=== PATIENT | female | born 1955 | race African-American/Black ===

== ENCOUNTER 2023-05-05 08:55 | Inpatient (IN) | payer MEDICARE, MEDICAID ==
[~2023-05-05] VITALS: Ht 167.6 cm; Wt 43.1 kg
[2023-05-05 09:26] LABS: HEMATOCRIT. 29.7 % (36.0-48.0); HEMOGLOBIN. 9.6 g/dL (12.0-16.0); MEAN CORPUSCULAR HEMOGLOBIN 30.3 pg (28.0-32.0); MEAN CORPUSCULAR HGB CONC 32.2 g/dL (31.0-37.0); MEAN CORPUSCULAR VOLUME 93.9 fL (81.0-99.0); MEAN PLATELET VOLUME 7.5 fl (7.4-10.4); PLATELET 191 x1000/uL (130-400); RED BLOOD CELL COUNT 3.16 mill/uL (4.2-5.4)
[2023-05-05 09:39] LABS: DIFFERENTIAL COMMENT 1; WHITE BLOOD COUNT 1.3 x1000/uL (4.5-11.0)
[2023-05-05 09:40] LABS: ALANINE AMINOTRANSFERASE 12 IU/L (10-49); ALBUMIN 4.3 g/dL (3.2-4.8); ASPARTATE AMINOTRANSFERASE 19 IU/L (<34); BILIRUBIN TOTAL 0.3 mg/dL (0.1-1.0); CALCIUM 9.2 mg/dL (8.7-10.4); CARBON DIOXIDE 26 mEq/L (21-32); CHLORIDE 102 mEq/L (98-107); CREATININE 0.5 mg/dL (0.6-1.0); GLUCOSE 89 mg/dL (70-105); POTASSIUM 3.8 mEq/L (3.5-5.1); PROTEIN TOTAL 7.8 g/dL (6.0-8.3); SODIUM 135 mEq/L (136-145); TROPONIN I HIGH SENSITIVITY 7 ng/L (3.0-34); UREA NITROGEN BLOOD 8 mg/dL (9-23)
[2023-05-05] MEDS: MORPHINE SULFATE 4 MG/ML CPJ (NOT FOR IM USE) IV NR (10:01)
[2023-05-05 10:46] LABS: ANISOCYTOSIS 1+; PLATELET ESTIMATE NORMAL
[2023-05-05] MEDS: AZITHROMYCIN 500MG/250ML 250 ML IV NR (11:02)
[2023-05-05] MEDS: CEFTRIAXONE 1GM PREMIX 50 ML IV NR (11:02)
[2023-05-05] MEDS ORDERED: CLONIDINE 0.1MG TABLET PO PRN (12:15)
[2023-05-05] MEDS ORDERED: ONDANSETRON HCL 4MG/2ML INJ IV PRN (12:15)
[2023-05-05] MEDS ORDERED: IPRATROPIUM/ALBUTEROL 0.5-3(2.5)MG/3ML NEB HHN PRN (12:30)
[2023-05-05] MEDS: PANTOPRAZOLE SODIUM 40 MG/VIAL IV SCH (12:44)
[2023-05-05] MEDS: IOHEXOL-350 100 ML BOTTLE ONE (13:09)
[2023-05-05 15:19] LABS: CREATINE KINASE 34 IU/L (34-145); TROPONIN I HIGH SENSITIVITY 9 ng/L (3.0-34)
[2023-05-05 15:22] LABS: CREATINE KINASE MB FRACTION < 0.0 ng/mL (0.5-3.6)
[2023-05-05 16:00] VITALS: BP_SYST 134; BP_DIAS 82; BP_DIAS 83; PULSE 84; RESP 18; TEMP 97.7
[2023-05-05] MEDS ORDERED: FAMO20TA8 PO (16:28)
[2023-05-05] MEDS ORDERED: TOPUD PO (16:28)
[2023-05-05] MEDS ORDERED: OXYC-662 MT (16:28)
[2023-05-05] MEDS ORDERED: CARV25TA47 MT (16:28)
[2023-05-05] MEDS ORDERED: ATOR40TA70 MT (16:28)
[2023-05-05] MEDS ORDERED: METO-293 PO (16:28)
[2023-05-05] MEDS ORDERED: SPIR25TA6 MT (16:28)
[2023-05-05] MEDS: MORPHINE SULFATE 2 MG/ML CPJ (NOT FOR IM USE) IV PRN (17:31)
[2023-05-05 18:09] LABS: INR 1.1; PROTHROMBIN TIME 11.6 sec (9.6-11.0)
[2023-05-05 19:42] LABS: CLARITY URINE CLEAR (CLEAR); COLOR URINE YELLOW (YELLOW); GLUCOSE URINE NEGATIVE (NEGATIVE); KETONES URINE TRACE (NEGATIVE); LEUKOCYTE ESTERASE URINE NEGATIVE (NEGATIVE); NITRITE URINE NEGATIVE (NEGATIVE); OCCULT BLOOD URINE NEGATIVE (NEGATIVE); PROTEIN URINE TRACE (NEGATIVE); SPECIFIC GRAVITY URINE 1.079 (1.005-1.030); UROBILINOGEN URINE 0.2 E.U./dL (0.2-1.0)
[2023-05-05 19:50] LABS: *AMPHETAMINES SCREEN URINE NEGATIVE (NEGATIVE); *BARBITURATES SCREEN URINE NEGATIVE (NEGATIVE); *BENZODIAZEPINES SCREEN URINE NEGATIVE (NEGATIVE); *COCAINE SCREEN URINE NEGATIVE (NEGATIVE); CANNABINOID URINE SCREEN PRESUMPTIVE POSITIVE (NEGATIVE); ECSTASY MDMA SCREEN URINE NEGATIVE (NEGATIVE); METHADONE URINE SCREEN Neg (NEGATIVE); OPIATES URINE SCREEN PRESUMPTIVE POSITIVE (NEGATIVE); PHENCYCLIDINE URINE SCREEN NEGATIVE (NEGATIVE)
[2023-05-05 20:00] VITALS: BP 149/72; PULSE 73; RESP 18; TEMP 97.9
[2023-05-05] MEDS: CEFEPIME 2,000 MG in DEXT 5% WATER 100 ML IV SCH (20:00)
[2023-05-05 20:02] VITALS: BP 149/72; PULSE 96; RESP 18; TEMP 97.9
[2023-05-05] MEDS ORDERED: CARVEDILOL 12.5MG TABLET PO SCH (21:00)
[2023-05-05 21:10] LABS: BACTERIA URINE NONE SEEN; RBC URINE 0-2 /hpf (0-2); SQUAMOUS EPITHELIAL CELL URINE RARE /lpf (RARE/1+); WBC URINE NONE SEEN /hpf (0-2)
[2023-05-05] MEDS: CARVEDILOL 12.5MG TABLET PO SCH (21:51)
[2023-05-05] MEDS: ATORVASTATIN CALCIUM 40MG TABLET PO SCH (21:52)
[2023-05-06] VITALS: BP 115/74; PULSE 76; RESP 18; TEMP 96.7
[2023-05-06 04:00] VITALS: BP 131/79; PULSE 79; RESP 16; TEMP 96
[2023-05-06 08:00] VITALS: BP 113/81; PULSE 85; RESP 20; TEMP 97.7
[2023-05-06] MEDS: ASPIRIN 81MG EC TABLET PO SCH (08:45)
[2023-05-06] MEDS: AZITHROMYCIN 250 MG in DEXT 5% WATER 250 ML IV SCH (11:23)
[2023-05-06 12:00] VITALS: BP 133/73; PULSE 89; RESP 20; TEMP 97.9
[2023-05-06] MEDS: DOCUSATE SODIUM 100MG CAPSULE PO NR (14:45)
[2023-05-06 15:56] LABS: HEMATOCRIT. 30.5 % (36.0-48.0); HEMOGLOBIN. 9.9 g/dL (12.0-16.0); MEAN CORPUSCULAR HEMOGLOBIN 30.4 pg (28.0-32.0); MEAN CORPUSCULAR HGB CONC 32.5 g/dL (31.0-37.0); MEAN CORPUSCULAR VOLUME 93.5 fL (81.0-99.0); MEAN PLATELET VOLUME 7.4 fl (7.4-10.4); PLATELET 192 x1000/uL (130-400); RED BLOOD CELL COUNT 3.27 mill/uL (4.2-5.4); RED CELL DISTRIBUTION WIDTH 17.6 % (11.6-14.6)
[2023-05-06 16:00] VITALS: BP 108/70; PULSE 83; RESP 20; TEMP 98
[2023-05-06 16:02] LABS: WHITE BLOOD COUNT 1.8 x1000/uL (4.5-11.0)
[2023-05-06 16:03] LABS: DIFFERENTIAL COMMENT 1
[2023-05-06 16:07] LABS: ALANINE AMINOTRANSFERASE 9 IU/L (10-49); ALBUMIN 3.8 g/dL (3.2-4.8); ASPARTATE AMINOTRANSFERASE 23 IU/L (<34); BILIRUBIN TOTAL 0.3 mg/dL (0.1-1.0); CALCIUM 9.1 mg/dL (8.7-10.4); CARBON DIOXIDE 26 mEq/L (21-32); CHLORIDE 101 mEq/L (98-107); CREATININE 0.5 mg/dL (0.6-1.0); GLUCOSE 98 mg/dL (70-105); POTASSIUM 4.2 mEq/L (3.5-5.1); PROTEIN TOTAL 6.8 g/dL (6.0-8.3); SODIUM 134 mEq/L (136-145)
[2023-05-06 16:18] LABS: UREA NITROGEN BLOOD < 5 mg/dL (9-23)
[2023-05-06 16:53] LABS: ANISOCYTOSIS 1+; PLATELET ESTIMATE NORMAL
[2023-05-06] MEDS ORDERED: NON FORMULARY PATIENT HOME MED XX SCH (18:00)
[2023-05-06] MEDS ORDERED: NALOXONE HCL 0.4MG/ML VIAL IV PRN (18:15)
[2023-05-06 20:00] VITALS: BP 149/72; PULSE 96; RESP 19; TEMP 97.9
[2023-05-06] MEDS: MELATONIN 3MG TABLET PO SCH (20:00)
[2023-05-06] MEDS: FILGRASTIM-TBO 300 MCG/0.5 ML SYRINGE SQ SCH (21:24)
[2023-05-07] VITALS: BP 122/76; PULSE 81; RESP 20; TEMP 97.6
[2023-05-07 04:00] VITALS: BP 122/73; PULSE 81; RESP 20; TEMP 97.4
[2023-05-07 07:10] LABS: HEMATOCRIT. 29.2 % (36.0-48.0); HEMOGLOBIN. 9.6 g/dL (12.0-16.0); MEAN CORPUSCULAR HEMOGLOBIN 31.2 pg (28.0-32.0); MEAN CORPUSCULAR HGB CONC 32.9 g/dL (31.0-37.0); MEAN PLATELET VOLUME 7.9 fl (7.4-10.4); PLATELET 200 x1000/uL (130-400); RED BLOOD CELL COUNT 3.08 mill/uL (4.2-5.4); RED CELL DISTRIBUTION WIDTH 18.3 % (11.6-14.6); WHITE BLOOD COUNT 3.2 x1000/uL (4.5-11.0)
[2023-05-07 07:31] LABS: DIFFERENTIAL COMMENT 1
[2023-05-07 07:34] LABS: CALCIUM 8.6 mg/dL (8.7-10.4); CARBON DIOXIDE 23 mEq/L (21-32); CHLORIDE 104 mEq/L (98-107); CREATININE 0.5 mg/dL (0.6-1.0); GLUCOSE 96 mg/dL (70-105); POTASSIUM 4.1 mEq/L (3.5-5.1); SODIUM 132 mEq/L (136-145); UREA NITROGEN BLOOD 6 mg/dL (9-23)
[2023-05-07 08:00] VITALS: BP 132/80; PULSE 88; RESP 18; TEMP 97.5
[2023-05-07 12:00] VITALS: BP 92/58; PULSE 100; RESP 18; TEMP 98.8
[2023-05-07] MEDS ORDERED: DOCUSATE SODIUM 100MG CAPSULE PO PRN (14:45)
[2023-05-07 15:41] LABS: ANISOCYTOSIS 1+; PLATELET ESTIMATE NORMAL
[2023-05-07 16:00] VITALS: BP 130/85; PULSE 95; RESP 18; TEMP 97.9
[2023-05-07] MEDS: LACTULOSE 20G/30ML UDC PO SCH ×2 (16:38→17:15)
[2023-05-07 20:00] VITALS: BP 112/66; PULSE 70; RESP 17; TEMP 97.8
[2023-05-08] VITALS (7 sets, daily range): BP systolic 100–131; BP diastolic 55–64; PULSE 74–91; RESP 17–18; TEMP 97.5–98.4
[2023-05-08] MEDS ORDERED: LACTULOSE 20G/30ML UDC PO PRN (08:00)
[2023-05-08] MEDS ORDERED: NA PHOS,M-B/NA PHOS,DI-BA ENEMA 118ML PR PRN (14:45)
[2023-05-08 17:20] LABS: BASOPHILS % 0.3 % (0.0-2.0); EOSINOPHILS % 0.2 % (0.0-5.0); HEMATOCRIT. 29.8 % (36.0-48.0); HEMOGLOBIN. 9.6 g/dL (12.0-16.0); LYMPHOCYTES % 19.2 % (20.0-50.0); MEAN CORPUSCULAR HEMOGLOBIN 30.2 pg (28.0-32.0); MEAN CORPUSCULAR HGB CONC 32.2 g/dL (31.0-37.0); MEAN PLATELET VOLUME 8.3 fl (7.4-10.4); MONOCYTES % 10.4 % (2.0-8.0); NEUTROPHILS % 69.9 % (40.0-76.0); PLATELET 223 x1000/uL (130-400); RED BLOOD CELL COUNT 3.17 mill/uL (4.2-5.4); WHITE BLOOD COUNT 9.7 x1000/uL (4.5-11.0)
[2023-05-08 17:37] LABS: CALCIUM 9.1 mg/dL (8.7-10.4); CARBON DIOXIDE 26 mEq/L (21-32); CHLORIDE 101 mEq/L (98-107); CREATININE 0.6 mg/dL (0.6-1.0); GLUCOSE 96 mg/dL (70-105); SODIUM 134 mEq/L (136-145); UREA NITROGEN BLOOD 7 mg/dL (9-23)
[2023-05-09] VITALS: BP 129/69; PULSE 92; RESP 19; TEMP 97.2
[2023-05-09 02:29] LABS: BASOPHILS % 0.5 % (0.0-2.0); EOSINOPHILS % 0.3 % (0.0-5.0); HEMATOCRIT. 26.4 % (36.0-48.0); HEMOGLOBIN. 8.7 g/dL (12.0-16.0); LYMPHOCYTES % 21.4 % (20.0-50.0); MEAN CORPUSCULAR HEMOGLOBIN 30.6 pg (28.0-32.0); MEAN CORPUSCULAR VOLUME 92.7 fL (81.0-99.0); MEAN PLATELET VOLUME 8.1 fl (7.4-10.4); MONOCYTES % 9.2 % (2.0-8.0); NEUTROPHILS % 68.6 % (40.0-76.0); PLATELET 201 x1000/uL (130-400); RED BLOOD CELL COUNT 2.85 mill/uL (4.2-5.4); RED CELL DISTRIBUTION WIDTH 17.8 % (11.6-14.6); WHITE BLOOD COUNT 9.3 x1000/uL (4.5-11.0)
[2023-05-09 02:50] LABS: ALANINE AMINOTRANSFERASE 13 IU/L (10-49); ALBUMIN 3.5 g/dL (3.2-4.8); ASPARTATE AMINOTRANSFERASE 16 IU/L (<34); BILIRUBIN TOTAL 0.2 mg/dL (0.1-1.0); CALCIUM 9.1 mg/dL (8.7-10.4); CARBON DIOXIDE 25 mEq/L (21-32); CHLORIDE 101 mEq/L (98-107); CREATININE 0.5 mg/dL (0.6-1.0); GLUCOSE 93 mg/dL (70-105); PROTEIN TOTAL 6.2 g/dL (6.0-8.3); SODIUM 133 mEq/L (136-145); UREA NITROGEN BLOOD 7 mg/dL (9-23)
[2023-05-09 04:00] VITALS: BP 111/69; PULSE 94; RESP 18; TEMP 98.4
[2023-05-09 07:07] LABS: BASOPHILS % 0.3 % (0.0-2.0); EOSINOPHILS % 0.2 % (0.0-5.0); HEMATOCRIT. 28.2 % (36.0-48.0); HEMOGLOBIN. 9.2 g/dL (12.0-16.0); LYMPHOCYTES % 14.2 % (20.0-50.0); MEAN CORPUSCULAR HEMOGLOBIN 30.5 pg (28.0-32.0); MEAN CORPUSCULAR HGB CONC 32.6 g/dL (31.0-37.0); MEAN CORPUSCULAR VOLUME 93.5 fL (81.0-99.0); MEAN PLATELET VOLUME 8.2 fl (7.4-10.4); MONOCYTES % 8.9 % (2.0-8.0); NEUTROPHILS % 76.4 % (40.0-76.0); PLATELET 215 x1000/uL (130-400); RED BLOOD CELL COUNT 3.02 mill/uL (4.2-5.4); RED CELL DISTRIBUTION WIDTH 18.3 % (11.6-14.6); WHITE BLOOD COUNT 13.7 x1000/uL (4.5-11.0)
[2023-05-09 07:13] LABS: CALCIUM 8.9 mg/dL (8.7-10.4); CARBON DIOXIDE 26 mEq/L (21-32); CHLORIDE 102 mEq/L (98-107); CREATININE 0.5 mg/dL (0.6-1.0); GLUCOSE 97 mg/dL (70-105); SODIUM 135 mEq/L (136-145); UREA NITROGEN BLOOD 7 mg/dL (9-23)
[2023-05-09 08:00] VITALS: BP 115/68; PULSE 66; RESP 18; TEMP 96.9
[2023-05-09 12:00] VITALS: BP 117/68; PULSE 85; RESP 18; TEMP 98
[2023-05-09] MEDS ORDERED: LEVO5TAB13 PO (12:21)
[2023-05-09] MEDS ORDERED: LEVO750P7 IV (12:21)
[2023-05-09] MEDS: SPIRONOLACTONE 25MG TABLET PO SCH (13:06)
[2023-05-09] MEDS ORDERED: LEVO750T68 MT (13:20)
[2023-05-09 13:24] VITALS: BP 116/75; PULSE 85; TEMP 98; O2SAT 99
== END 2023-05-09 15:00 | disposition home or self-care (01) | DRG 180 ==
LOC: ER 08:55 → EDBEDREQ 10:03 → 8WST 12:12 → EDBEDREQTM 12:15 → EDBEDREQ 12:15 → ER 14:50
PROVIDERS: ADMIT Preventive Medicine Clinical Informatics; ATTEND Preventive Medicine Clinical Informatics
DX: C34.91 Malignant neoplasm of unspecified part of right bronchus or lung (principal); J18.9 Pneumonia, unspecified organism; C79.51 Secondary malignant neoplasm of bone; E87.1 Hypo-osmolality and hyponatremia; J44.0 Chronic obstructive pulmonary disease with (acute) lower respiratory infection; I50.20 Unspecified systolic (congestive) heart failure; K92.2 Gastrointestinal hemorrhage, unspecified; Z68.1 Body mass index [BMI] 19.9 or less, adult; J91.8 Pleural effusion in other conditions classified elsewhere; R62.7 Adult failure to thrive; D63.8 Anemia in other chronic diseases classified elsewhere; D70.9 Neutropenia, unspecified; I07.1 Rheumatic tricuspid insufficiency; I25.10 Atherosclerotic heart disease of native coronary artery without angina pectoris; K59.03 Drug induced constipation; T40.2X5A Adverse effect of other opioids, initial encounter; T45.1X5A Adverse effect of antineoplastic and immunosuppressive drugs, initial encounter; F17.200 Nicotine dependence, unspecified, uncomplicated; Z95.2 Presence of prosthetic heart valve; Z79.899 Other long term (current) drug therapy; Z85.118 Personal history of other malignant neoplasm of bronchus and lung; Z80.1 Family history of malignant neoplasm of trachea, bronchus and lung; Y92.89 Other specified places as the place of occurrence of the external cause
CPT/HCPCS: 36415; 71045; 71275; 80048; 80053; 80305; 81003; 82550; 82553; 83605; 83880; 84145; 84484; 85025; 85379; 93005; 93306; 93970; 99285; C9113; J0456; J0692; J0696; J1442; J2270; J7060; Q9967